=== PATIENT | male | born 1990 ===

== ENCOUNTER 2018-01-17 13:33 | Emergency (ER) | payer OTHER ==
[2018-01-17 13:36] VITALS: BP 154/78; PULSE 74; RESP 16; TEMP 98; O2SAT 97
[2018-01-17] MEDS ORDERED: Tdap Vaccine 0.5 ml Vial (10-64 yrs) IM ONE ×2 (13:47→14:30)
[2018-01-17] MEDS ORDERED: LIDOCAINE 2% 10ML 20 MG/ML VIAL IJ STA (13:47)
--- NOTE | 2018-01-17 13:49 | ED PDOC ---
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 No pain at this time. no active bleed. no numbness or tingling FROM to wrist and all digits. Tjazzy unkonwn Past Medical History Reviewed: Nursing Documentation, Vital Signs Vital Signs: Last Vital Signs Temp 98.0 F 01/17/18 13:34 Pulse 74 01/17/18 13:34 Resp 16 01/17/18 13:34 BP 154/78 H 01/17/18 13:34 Pulse Ox 97 01/17/18 13:34 - Medical History PMH: No Chronic Diseases - Family History Family History: States: No Known Family Hx - Living Arrangements Living Arrangements: With Family - Social History Current smoker - smoking cessation education provided: No Alcohol: Social Drugs: Denies - Allergies Allergies/Adverse Reactions: Allergies Allergy/AdvReac Type Severity Reaction Status Date / Time No Known Allergies Allergy Verified 01/17/18 13:34 Review of Systems ROS Statement: Except As Marked, All Systems Reviewed And Found Negative Skin: Positive for: Other (laceration) Physical Exam - Reviewed Nursing Documentation Reviewed: Yes Vital Signs Reviewed: Yes - Physical Exam Appears: Positive for: Well, Non-toxic, No Acute Distress Head Exam: Positive for: ATRAUMATIC, NORMAL INSPECTION, NORMOCEPHALIC Skin: Positive for: Normal Color, Warm, DRY Eye Exam: Positive for: EOMI, Normal appearance, PERRL ENT: Positive for: Normal ENT Inspection Neck: Positive for: Normal, Painless ROM Cardiovascular/Chest: Positive for: Regular Rate, Rhythm Respiratory: Positive for: CNT, Normal Breath Sounds Gastrointestinal/Abdominal: Positive for: Normal Exam, Soft Back: Positive for: Normal Inspection Extremity: Positive for: Normal ROM, Other (small 2 cm laceration radial aspcted of left wrist. no active bleed at this time). Negative for: Tenderness Neurologic/Psych: Positive for: Alert, Oriented - ECG O2 Sat by Pulse Oximetry: 97 Medical Decision Making Medical Decision Making: Laceration repaired by resident. see procedure note. procedure monitored by bid writer. wound care discussed. Disposition - Clinical Impression Clinical Impression: Laceration - Patient ED Disposition Is Patient to be Admitted: No - Disposition Disposition: Routine/Home Disposition Time: 14:00 Condition: STABLE Additional Instructions: Suture removal in 7-10 days Instructions: Laceration Repair Forms: [facility] ([place])
[2018-01-17] MEDS ORDERED: Lidocaine PF 2% (5 ml) Inj (For Cardiac Arrhy) ONE (13:53)
== END 2018-01-17 15:14 | disposition home or self-care (01) ==
LOC: H.ER 13:33
DX: S61.512A Laceration without foreign body of left wrist, initial encounter (principal); W45.8XXA Other foreign body or object entering through skin, initial encounter; Y99.0 Civilian activity done for income or pay; Z23 Encounter for immunization